=== PATIENT | male | born 1940 | race Caucasian/White ===

== ENCOUNTER 2024-11-14 06:58 | Day surgery (SDC) | payer OTHER, MEDICARE ==
[2024-11-12 15:25] VITALS: BMI 19.8
[2024-11-14] MEDS ORDERED: PROPOFOL 20 ML ONE (14:40)
[2024-11-14] MEDS ORDERED: DEXAMETHASONE SOD PHOSPHATE 4 MG/1 ML VIAL ONE (14:47)
[2024-11-14] MEDS ORDERED: ONDANSETRON 4 MG/2 ML VIAL ONE (14:47)
[2024-11-14] MEDS ORDERED: ONDANSETRON 4 MG/2 ML VIAL IVPUSH PRN (15:14)
[2024-11-14] MEDS ORDERED: LACTATED RINGERS SOLUTION 1,000 ML IV SCH (15:15)
[2024-11-14 17:04] VITALS: PULSE 70; RESP 16; TEMP 97.3
[2024-11-14 18:24] VITALS: BP 124/77
== END 2024-11-14 18:15 ==
LOC: JASU-SURG 06:58
PROVIDERS: ATTEND Urology
PROC: 0T9B00Z Drainage of Bladder with Drainage Device, Open Approach (ICD-10-PCS; principal; 2024-11-14 13:00)
DX: N31.9 Neuromuscular dysfunction of bladder, unspecified (principal); N36.8 Other specified disorders of urethra
CPT/HCPCS: 94760